=== PATIENT | male | born 1965 | race Caucasian/White ===

== ENCOUNTER 2025-07-02 07:58 | Outpatient (REF) | payer OTHER, SELFPAY ==
--- NOTE | ~2025-07-02 | US_ITS ---
EXAMINATION: US EXTRACRANIAL CAROTID DUPLEX, BILATERAL CLINICAL INFORMATION: Occlusion and stenosis, bilateral carotid arteries. COMPARISON: None available. TECHNIQUE: Real-time ultrasound and Doppler techniques (integrating B-mode 2-D vascular images, Doppler spectral analysis and color-flow Doppler imaging) were utilized to interrogate the extracranial carotid arteries, the vertebral arteries and proximal subclavian arteries bilaterally. The degree of stenosis is determined by criteria similar to NASCET. FINDINGS: Right Side: 1. There is no atherosclerotic plaque seen in the bifurcation/proximal ICA region. 2. The common carotid artery PSV proximally is 81 cm/s and distally 73 cm/s. 3. The proximal internal carotid artery velocities are 58 cm/s systolic and 22 cm/s diastolic. 4. The proximal external carotid artery PSV is 95 cm/s. 5. The vertebral artery shows antegrade flow. 6. The subclavian artery waveforms are triphasic.. ICAs/CCA ratio: 0.7. Left Side: 1. There is no atherosclerotic plaque seen in the bifurcation/proximal ICA region. 2. The common carotid artery PSV proximally is 93 cm/s and distally 81 cm/s. 3. The proximal internal carotid artery velocities are 61 cm/s systolic and 24 cm/s diastolic. 4. The proximal external carotid artery PSV is 68 cm/s. 5. The vertebral artery shows antegrade flow. 6. The subclavian artery waveforms are triphasic. ICA/CCA ratio: 0.7. US/US carotid duplex BI IMPRESSION: 1. RIGHT: No hemodynamically significant stenosis by ultrasound criteria. No gross plaque. 2. LEFT: No hemodynamically significant stenosis by ultrasound criteria. No gross plaque. Normal exam. Electronically signed by: Hung Lott MD 07/02/2025 09:16 AM EDT
--- OUTSIDE RECORDS SUMMARY | 2025-07-02 08:10 | XMS_ITS | Encounter Summary ---
Author Organization [facility] Address [address] [place] [id number] Phone Care Team Providers Care Legal Internship Name Role Phone Unknown, Unknown Primary Care Provider Aislinn newman Encounter Details Date Type Department Care Team (Late st Contact Info) Description 01/14/2025 Ancillary Orders [facility]ed[facility] [address] [place] [address] Moise Christensen MD [address] [place] [address], [address] [place] [address] [email or web address] Chronic pain of both knees (Primary Dx) Social History Tobacco Use Types Packs/Day Years Used Date Smoking Tobacco: Never Assessed Education Answer Date Recorded Are you interested in more education? Not on [place] e 02/24/2023 Are you concerned about learning? Not on file 02/24/2023 No 02/24/2023 No 02/24/2023 Digital Access Answer Date Recorded No 03/25/2023 No 03/25/2023 No 03/25/2023 Reliable internet access at home? Not on file 03/25/2023 Device with a working camera? Not on file Sex and Gender Information Value Date Recorded Sex Assigned at Male 10/06/2022 2:43 PM EST Legal Sex Male 2:35 PM EST Gender Identity Male 10/06/2022 2:43 PM EST Sexual Orientation Straight 10/06/2022 2: 37 PM EST documented as of this encounter Plan of Treatment Not on file documented as of this encounter Results * XR Knee Standing (Bilateral, Single View Only) (01/14/2025 4:09 PM EDT) Anatomical Region Laterality Modality Knee Right, Knee Bilateral Compu ирина Radiography 01/15/2025 11:1 6 AM EDT Impressions 01/15/2025 11:18 AM EDT Left anterior cruciate ligament reconstruction with superimposed medial compartment predominant degenerative changes. Narrative 01/15/2025 11:18 AM EDT XR KNEE 1-2 VIEWS (LEFT), XR KNEE STANDING (BILATERAL, SINGLE VIEW ONLY) Referring clinician's provided indication for this examination in Epic: Osteoarthritis; Pain COMPARISON: XR LOWER EXTREMITY OUTSIDE (NO INTERPRETATION) FINDINGS: Left Knee: No acute fracture or dislocation. Status post anterior cruciate ligament reconstruction with intact proximal tibial screw. Moderate to severe superimposed degenerative changes, most pronounced in the medial compartment. Bipartite patella. Small joint effusion. Right knee: Frontal evaluation demonstrates medial compartment predominant degenerative changes. Procedure Note Coleman Ramos MD - 01/15/2025 XR KNEE 1-2 VIEWS (LEFT), XR KNEE STANDING (BILATERAL, SINGLE VIEW ONLY) Referring clinician's provided indication for this examination in Epic:Osteoarthritis; Pain COMPARISON: XR LOWER EXTREMITY OUTSIDE (NO INTERPRETATION) FINDINGS: Left Knee: No acute fracture or dislocation. Status post anterior cruciateligament reconstruction with intact proximal tibial screw. Moderate tosevere superimposed degenerative changes, most pronounced in the medialcompartment. Bipartite patella. Small joint effusion. Right knee: Frontal evaluation demonstrates medial compartment predominantdegenerative changes. IMPRESSION: Left anterior cruciate ligament reconstruction with superimposed medialcompartment predominant degenerative changes. Moise Christensen MD IMG XR LOWER EXTREMITY Final Re sult documented in this encounter Visit Diagnoses Diagnosis Chronic pain of both knees Chronic pain of both knees- Primary documented in this encounter Care Teams Legal Internship Relationship Specialty Start Date End Date Unknown, Unknown, PCP - General 02/19/24 documented as of this encounter Additional Source Comments The information contained in this document represents components of the legal health record. It is not the complete legal health record.[facility]
--- OUTSIDE RECORDS SUMMARY | 2025-07-02 08:10 | XMS_ITS | Clinical Summary ---
Author Organization [facility] Address [address] [facility] [address] [place] [phone] Phone Care Team Providers Care Route Driver Salesperson Name Role Phone Unknown, Unknown Primary Care Provider Aislinn newman Encounters Date Type Department Care Team Description 05/04/2025 9:00 AM EDT Telemedicine [facility] Orthopedics at [address] [place] [address] Mayra Montoya PA-C Primary localized osteoarthrosis of left lower leg (Primary Dx) from Last 3 Months Social History Tobacco Use Types Packs/Day Years [...] Orientation Straight 10/06/2022 2: 37 PM EST Plan of Treatment Health Maintenance Due Date Last Done Comments LIPID PANEL 1967 DEPRESSION SCREENING 1979 SMOKING Hx and SMOKELESS TOBACCO SCREENING 12/27/1980 HEPATITIS C SCREENING 12/27/1985 HIV ONE-TIME SCREENING (18-65 YEARS) 12/27/1985 COLOGUARD 12/27/2012 COLONOSCOPY 12/27/2012 COLORECTAL CANCER SCREENING 12/27/2012 FIT TEST 12/27/2012 FOBT 12/27/2012 SIGMOIDOSCOPY 12/27/2012 VIRTUAL COLONOSCOPY 12/27/2012 PNEUMOCOCCAL VACCINES (50+ years) (1 of 1 - PCV) 12/27/2017 ZOSTER VACCINES (1 of 2) 12/27/2017 COVID-19 VACCINE ( - season) 2024 08/14/2022, 09/28/2021, 01/25/2021, Additional history exists Adult Td,Tdap Booster 03/20/2026 03/20/2016, 006 HEPATITIS A VACCINES Aged Out No long er eligible based on patient's age to complete this topic HIB VACCINES Aged Out No longer eligi ble based on patient's age to complete this topic MENINGOCOCCAL VACCINES (ACWY) Aged Out No longer eligible based on patient's age to complete this topic MENINGOCOCCAL VACCINES (B) Aged Out N o longer eligible based on patient's age to complete this topic Medical Devices Not on file Insurance [place] [address] [place] [address] [place] [address] [place] [address] POS POS POS Care Teams Route Driver Salesperson Relationship Specialty Start Date End Date Unknown, Unknown, PCP - General 02/19/24 Additional Source Comments The information contained in this document represents components of the legal health record. It is not the complete legal health record.[facility]
== END 2025-07-02 07:59 | disposition home or self-care (01) ==
LOC: HO.US 07:58
PROVIDERS: Visit Provider Surgery Vascular Surgery
DX: I65.23 Occlusion and stenosis of bilateral carotid arteries (principal)
CPT/HCPCS: 93880

== ENCOUNTER → 2025-07-02 08:06 | Outpatient (BNV) | payer OTHER, SELFPAY | PROVIDERS: Visit Provider Radiology Diagnostic Radiology | DX: I65.23 Occlusion and stenosis of bilateral carotid arteries (principal) | CPT/HCPCS: 93880 ==